=== PATIENT | female | born 1930 | race Caucasian/White ===

== ENCOUNTER 2017-09-19 12:02 | Inpatient (IN) | payer OTHER ==
[~2017-09-19] VITALS: Ht 157.5 cm; Wt 61.7 kg
[~2017-09-19 12:02] MED LIST: ASPIRIN325 PO; CARDIZEM CD180 MG PO; CELEXA10 MG PO; CHERATUSSIN AC118 ML PO; DUONEB 2.5-0.5 M3 ML INH; FOSAMAX 70 MG T70 MG PO; HUMALOG100 UNIT/1; HUMALOG100 UNIT/1 SUBQ; HYDROCODONE-AP1 EAC6 PO; LANTUS100 UNIT/M SUBQ; LEVAQUIN 500 M500 M2 PO; LEVEMIR SUBQ; LEVEMIR100 UNIT/1 SUBQ; LEVOTHYROXINE0.05 MG PO; LIPITOR10 MG PO; MIRALAX17 GM PO; MIRALAX255 GM PO; NOVOLOG100 UNIT/1 SUBQ; OYST-CAL-500500 MG PO; ZOCOR 10 MG TAB10 MG PO
[2017-09-19 12:06] VITALS: BP 130/59
[2017-09-19] MEDS ORDERED: BREO ELLIPTA 11 EACH INH (12:21)
[2017-09-19] MEDS ORDERED: DIGOXIN125 MCG PO (12:22)
[2017-09-19] MEDS ORDERED: POTASSIUM20 PO (12:22)
[2017-09-19] MEDS ORDERED: LASIX 40 MG TAB40 M2 PO (12:22)
[2017-09-19] MEDS ORDERED: ELIQUIS5 MG PO (12:23)
[2017-09-19] MEDS ORDERED: DOC-Q-LACE100 MG PO (12:23)
[2017-09-19] MEDS ORDERED: ACETAMINOPHEN-1 EAC1 PO (12:24)
[2017-09-19] MEDS ORDERED: MUCINEX100 MG PO (12:24)
[2017-09-19] MEDS ORDERED: TYLENOL325 MG PO (12:24)
[2017-09-19 12:39] LABS: ABSOLUTE LYMPHOCYTES 0.8 thou/uL (0.8-5.3); ABSOLUTE MONOCYTES 1.1 thou/uL (0.0-1.2); ABSOLUTE NEUTROPHILS 4.5 thou/uL (1.6-8.1); BASOPHILS 0.4 %; EOSINOPHILS 0.3 %; HEMATOCRIT 45.8 % (37.0-47.0); HEMOGLOBIN 15.3 gm/dL (12.0-15.0); LYMPHOCYTES 12.1 %; MCHC 33.4 g/dL (28.0-37.0); MCV 89.7 fL (80.0-100.0); MONOCYTES 16.9 %; MPV 10.7 fl. (7.2-11.1); NUCLEATED RBCS 0 /100WBC; PLATELET COUNT* 165 thou/uL (150-400); POLYS 70.3 %; RBC 5.11 mil/uL (4.20-5.00); RDW-CV 14.2 % (10.5-14.5); WBC 6.4 thou/uL (4.0-11.0)
[2017-09-19 12:44] LABS: INFLUENZA A ANTIGEN None Detected (None Detect)
[2017-09-19 12:48] LABS: ANION GAP 5 mmol/L (7-16); BUN 17 mg/dL (7-18); CALCIUM 8.5 mg/dL (8.5-10.1); CHLORIDE 95 mmol/L (98-107); CO2 36 mmol/L (21-32); CREATININE 1.2 mg/dL (0.6-1.3); GLUCOSE 134 mg/dL (70-99); POTASSIUM 3.9 mmol/L (3.5-5.1); SODIUM 136 mmol/L (136-145)
[2017-09-19 12:51] LABS: PROTIME 10.2 Seconds (9.20-11.50)
[2017-09-19 12:59] LABS: ALBUMIN 3.4 g/dL (3.4-5.0); ALKALINE PHOSPHATASE 78 U/L (46-116); LIPASE 69 U/L (73-393); MAGNESIUM 1.8 mg/dL (1.8-2.4); NT-PRO BRAIN NAT PEPTIDE 1480 pg/mL (<300); SGOT 47 U/L (15-37); SGPT 26 U/L (30-65); TOTAL BILIRUBIN 0.4 mg/dL (<0.1-1.0); TOTAL PROTEIN 6.6 g/dL (6.4-8.2); TROPONIN-I LEVEL <0.06 ng/mL (<0.06)
--- NOTE | 2017-09-19 14:50 | EKG ---
[place] [address] ELECTROCARDIOGRAM REPORT Name: LUIS MANUEL [place] Room: [place] [address] ADM IN [facility].#: [id number] Admission: 09/19/17 Attend Phys: Bill Sherman Discharge: Date of : [birth year] Report #: [id number] THIS REPORT FOR: //name// [facility] ED Test Date: 2017-09-19 Test Time: 12:22:42 Pat Name: LUIS MANUEL [place] Department: Room: [facility] Gender: F Pediatric Dermatologist: Kristi WEAVER : 1930 Requested By: Darion Richard Order Number: [id number] MD: David Curiel Measurements Intervals [place] Rate: 91 P: [place]: QRS: 50 QRSD: 124 T: -70 QT: 389 QTc: 479 Interpretive Statements Atrial fibrillation Right bundle branch block Compared to ECG 03/06/2015 08:40:16 Bifascicular block no longer present Electronically Signed On 09-19-2017 14:49:47 CDT by David Curiel [email or web address] <ELECTRONICALLY SIGNED> By: David Curiel MD, [facility] 09/19/17 1449 1222 1222 David Curiel MD, [facility] /EPI
[2017-09-19 17:21] VITALS: BP 108/48
[2017-09-19 17:34] LABS: CALCIUM 8.1 mg/dL (8.5-10.1); CREATININE 1.1 mg/dL (0.6-1.3); POTASSIUM 4.3 mmol/L (3.5-5.1)
[2017-09-19 18:17] VITALS: BP 106/55
--- NOTE | 2017-09-19 19:25 | NUR ---
PATIENT ADM TO UNIT, ON FLOOR AT 1755. REPORT FROM [facility] IN ER, AGREE WITH REPORT, ASSESSMENT AND DOCUMENTATION COMPLETED. PATIENT A&OX4, LETHARGIC AT THIS TIME. ABBLE TO ANSWER QUESTIONS APPROPRIATELY, BUT FALLS RIGHT BACK TO SLEEP. DAUGHTER WAS AT BEDSIDE FOR ADM ASSESSMENT, HYSTORY INFORMATION PROVIDED BY DAUGHTER. ALL BELONGINGS WITHIN REACH, CALL LIGHT AT BEDSIDE. PT REPORTS ABLE TO AMBULATE WITH WALKER, STEADY GAIT. PATIENT HAS NOT AMBULATED SINCE ON THE FLOOR. NO OTHER COMPLAINTS AT THIS TIME. APPROPRAITE AND COOPORATIVE WITH CARE.
[2017-09-19 21:00] VITALS: BP 114/63
[2017-09-19 22:08] VITALS: BP 105/54
[2017-09-19 22:22] VITALS: BP 77/41
[2017-09-20 05:00] VITALS: BP 109/50
[2017-09-20 05:11] LABS: ABSOLUTE LYMPHOCYTES 0.5 thou/uL (0.8-5.3); ABSOLUTE MONOCYTES 0.2 thou/uL (0.0-1.2); ABSOLUTE NEUTROPHILS 2.5 thou/uL (1.6-8.1); BASOPHILS 0.6 %; HEMATOCRIT 40.7 % (37.0-47.0); HEMOGLOBIN 13.6 gm/dL (12.0-15.0); LYMPHOCYTES 14.7 %; MCH 29.9 pg (26.0-34.0); MCHC 33.4 g/dL (28.0-37.0); MCV 89.4 fL (80.0-100.0); MONOCYTES 7.6 %; MPV 10.5 fl. (7.2-11.1); NUCLEATED RBCS 0 /100WBC; PLATELET COUNT* 124 thou/uL (150-400); POLYS 77.1 %; RBC 4.55 mil/uL (4.20-5.00); RDW-CV 14.1 % (10.5-14.5); WBC 3.2 thou/uL (4.0-11.0)
[2017-09-20 05:18] LABS: ALBUMIN 2.5 g/dL (3.4-5.0); CALCIUM 8.1 mg/dL (8.5-10.1); CREATININE 1.1 mg/dL (0.6-1.3); POTASSIUM 4.9 mmol/L (3.5-5.1); TOTAL BILIRUBIN 0.3 mg/dL (<0.1-1.0); TOTAL PROTEIN 4.9 g/dL (6.4-8.2)
[2017-09-20 09:30] VITALS: BP 109/53
--- NOTE | 2017-09-20 14:16 | NUR ---
CM SPOKE TO THE PATIENT TO DISCUSS HOME SITUATION, DISCHARGE PLANNING, AND TO INFORM OF THE ROLE OF CM. PATIENT RESTING WITH EYES CLOSED DURING ASSESSMENT. PATIENT'S DTR INGRID AT THE BEDSIDE ANSWERING QUESTIONS FOR THE PATIENT. PATIENT RESIDES AT THE [facility]. PATIENT NORMALLY ALERT AND ORIENTED. PATIENT USES A WALKER FOR MOBILITY. PATIENT'S DTR STATES THAT THE PLAN IS FOR THE PATIENT TO RETURN TO [facility] AT D/C. CM WILL REMAIN AVAILABLE TO ASSIST AND FOLLOW NEEDED.
[2017-09-20 16:53] VITALS: BP 92/45
--- NOTE | 2017-09-20 17:31 | NUR ---
PATIENT RESTING IN BED. PATIENT DENIES ANY PAIN. PATIENT HAS BEEN AFEBRILE. PATIENT HAS FAIR APPETITE. PATIENT IS UP STANDBY ASSIST TO COMMODE. PATIENT HAS SLEPT ON AND OFF THROUGHOUT DAY. PATIENT DENIES ANY NEEDS AT THIS TIME. CALL LIGHT WITHIN REACH. WILL CONTINUE TO MONITOR.
[2017-09-20 20:30] VITALS: BP 93/41
[2017-09-21 05:08] LABS: ABSOLUTE LYMPHOCYTES 1.2 thou/uL (0.8-5.3); ABSOLUTE MONOCYTES 0.8 thou/uL (0.0-1.2); ABSOLUTE NEUTROPHILS 5.8 thou/uL (1.6-8.1); BASOPHILS 0.2 %; EOSINOPHILS 0.1 %; HEMATOCRIT 38.9 % (37.0-47.0); LYMPHOCYTES 15.4 %; MCH 29.8 pg (26.0-34.0); MCHC 33.3 g/dL (28.0-37.0); MCV 89.4 fL (80.0-100.0); MONOCYTES 9.9 %; MPV 10.2 fl. (7.2-11.1); NUCLEATED RBCS 0 /100WBC; PLATELET COUNT* 131 thou/uL (150-400); POLYS 74.4 %; RBC 4.36 mil/uL (4.20-5.00); RDW-CV 14.4 % (10.5-14.5); WBC 7.7 thou/uL (4.0-11.0)
[2017-09-21 05:45] LABS: ALBUMIN 2.3 g/dL (3.4-5.0); CALCIUM 7.7 mg/dL (8.5-10.1); POTASSIUM 4.1 mmol/L (3.5-5.1); TOTAL BILIRUBIN 0.3 mg/dL (<0.1-1.0); TOTAL PROTEIN 4.8 g/dL (6.4-8.2)
--- NOTE | 2017-09-21 07:33 | NUR ---
PT SLEPT MOST OF SHIFT. ASSESSMENT DOCUMENTED. MEDS GIVEN PER E-MAR. IV PATENT, FLUIDS INFUSING. NO REPORTS OF PAIN. NO CONCERNS AT THIS TIME, WILL CONTINUE WITH PLAN OF CARE.
[2017-09-21 08:05] VITALS: BP 99/46
[2017-09-21 16:40] VITALS: BP 100/48
--- NOTE | 2017-09-21 17:36 | NUR ---
PATIENT RESTING IN BED. PATIENT HAS BEEN UP TO CHAIR X 2 TODAY. PAITIENT IS UP WITH MINIMAL ASSIST AND WORKED WITH THERAPY THIS AFTERNOON. PATIENT IS TOLERATING DIET. PATIENT IS AFEBRILE. PATIENT HAS 02 ON AT 2L/NC. PATIENT DENIES ANY NEEDS AT THIS TIME. CALL LIGHT WITHIN REACH. REMIGIO CONTINUE TO MONITOR.
[2017-09-21 21:00] VITALS: BP 114/51
[2017-09-22] VITALS: BP 124/64
[2017-09-22 04:34] LABS: ABSOLUTE LYMPHOCYTES 1.2 thou/uL (0.8-5.3); ABSOLUTE MONOCYTES 0.8 thou/uL (0.0-1.2); ABSOLUTE NEUTROPHILS 5.1 thou/uL (1.6-8.1); BASOPHILS 0.2 %; EOSINOPHILS 0.1 %; HEMOGLOBIN 13.4 gm/dL (12.0-15.0); LYMPHOCYTES 16.8 %; MCH 30.1 pg (26.0-34.0); MCHC 33.5 g/dL (28.0-37.0); MCV 89.8 fL (80.0-100.0); MONOCYTES 11.4 %; MPV 10.8 fl. (7.2-11.1); NUCLEATED RBCS 0 /100WBC; PLATELET COUNT* 124 thou/uL (150-400); POLYS 71.5 %; RBC 4.45 mil/uL (4.20-5.00); RDW-CV 14.3 % (10.5-14.5); WBC 7.2 thou/uL (4.0-11.0)
[2017-09-22 04:46] LABS: ALBUMIN 2.5 g/dL (3.4-5.0); CALCIUM 8.1 mg/dL (8.5-10.1); CREATININE 0.9 mg/dL (0.6-1.3); POTASSIUM 3.6 mmol/L (3.5-5.1); TOTAL BILIRUBIN 0.4 mg/dL (<0.1-1.0); TOTAL PROTEIN 4.9 g/dL (6.4-8.2)
--- NOTE | 2017-09-22 05:17 | NUR ---
PT SLEPT MOST OF SHIFT. ASSESSMENT DOCUMENTED. MEDS GIVEN PER E-MAR. IV PATENT. NO REPORTS OF PAIN OR NAUSEA. PT BECAME WHEEZEY AND SHORT OF BREATH, DR NOTIFIED, IV FLUIDS HELD PER DR ORDER. PTS HEART RATE JUMPING FROM 115-135 AT BEGINING OF SHIFT. NOTIFIED, DAY TIME CARDIZEM GIVEN PER DR ORDER, PT PLACED ON TELE MONITOR. WILL CONTINUE WITH PLAN OF CARE.
[2017-09-22 05:20] VITALS: BP 116/63
[2017-09-22 08:00] VITALS: BP 113/75
[2017-09-22 14:22] VITALS: BP 113/75
--- NOTE | 2017-09-22 14:23 | NUR ---
Following for d/c planning needs. Spoke with pt's daughter and she is agreeable to home health. Daughter was given choices, and she wants to use [facility]. Faxed referral to [email or web address]. Will fax orders when available. [facility] [phone]; fax [phone]
[2017-09-22 16:09] VITALS: BP 95/35
--- NOTE | 2017-09-22 20:08 | NUR ---
PATIENT RESTING IN BED. PATIENT HAS BEEN UP TO CHAIR FOR ALL MEALS. PATIENT IS UP WAS MINIMAL ASSIST. PATIENT DENIES ANY PAIN. PATIENT LUNG SOUNDS HAVE IMPROVED FROM THIS AM. PATIENT HAS GOOD APPETITE. PATIENT DENIES ANY NEEDS AT THIS TIME. CALL LIGHT WITHIN REACH. WILL CONTINUE TO MONITOR.
[2017-09-23 00:16] VITALS: BP 117/61
[2017-09-23 04:00] VITALS: BP 115/57
[2017-09-23 06:03] LABS: ABSOLUTE LYMPHOCYTES 1.4 thou/uL (0.8-5.3); ABSOLUTE MONOCYTES 0.8 thou/uL (0.0-1.2); ABSOLUTE NEUTROPHILS 4.8 thou/uL (1.6-8.1); BASOPHILS 0.2 %; EOSINOPHILS 0.2 %; HEMATOCRIT 38.6 % (37.0-47.0); HEMOGLOBIN 12.9 gm/dL (12.0-15.0); LYMPHOCYTES 20.3 %; MCH 29.9 pg (26.0-34.0); MCHC 33.5 g/dL (28.0-37.0); MCV 89.1 fL (80.0-100.0); MONOCYTES 10.8 %; MPV 10.4 fl. (7.2-11.1); NUCLEATED RBCS 0 /100WBC; PLATELET COUNT* 125 thou/uL (150-400); POLYS 68.5 %; RBC 4.33 mil/uL (4.20-5.00); RDW-CV 14.6 % (10.5-14.5)
[2017-09-23 06:10] LABS: ALBUMIN 2.7 g/dL (3.4-5.0); CALCIUM 8.8 mg/dL (8.5-10.1); CREATININE 0.9 mg/dL (0.6-1.3); POTASSIUM 3.5 mmol/L (3.5-5.1); TOTAL BILIRUBIN 0.6 mg/dL (<0.1-1.0); TOTAL PROTEIN 5.2 g/dL (6.4-8.2)
--- NOTE | 2017-09-23 06:54 | NUR ---
PATIENT SLEPT WELL DURING THIS SHIFT. PT ALERT/ORIENTED, ABLE TO MAKE NEEDS KNOWN. PT USES CALL LIGHT APPROPRIATELY FOR ASSISTANCE TO BSC. PT VOIDS CLEAR YELLOW URINE. PT WITH SALINE LOCK IN LT AC. PT WITH 2100 BLOOD SUGAR OF 307; HUMALOG 9 UNITS GIVEN. PT DENIES PAIN ON THIS SHIFT. PT ON O2 @ 2 LITERS PER NASAL CANNULA. PT IN DROPLET ISOLATION. FREQUENTLY USED ITEMS AND CALL LIGHT WITHIN REACH. SIDERAILS UPX4 AND BED ALARM ON. WILL CONTINUE TO MONITOR.
[2017-09-23 09:50] VITALS: BP 115/54
[2017-09-23] MEDS ORDERED: TAMIFLU30 MG PO (11:13)
[2017-09-23] MEDS ORDERED: PREDNISONE 10 M10 MG PO (11:15)
[2017-09-23] MEDS ORDERED: LEVAQUIN 250 M250 MG PO (11:16)
[2017-09-23 11:41] VITALS: BP 115/54
--- NOTE | 2017-09-23 14:00 | NUR ---
PT.TO DISCHARGE TODAY BACK TO [facility]. NOTIFIED [facility]. PT.TO HAVE HOMEHEALTH WITH [facility]. FAXED ORDERS TO THEM AND NOTIFIED THEM AT NUMBERS LISTED IN LAST CM NOTE.
--- NOTE | 2017-09-23 15:51 | NUR ---
PATIENT DISCHARGED TO [facility]. DISCHARGE PAPERS REVIEWED AND SIGNED. PRESCRIPTIONS GIVEN. IV REMOVED. COPY OF CHART GIVEN TO DAUGHTER FOR ADMINISTRATION. PATIENT DENIES ANY FURTHER NEEDS. PATIENT TAKEN BY WHEELCHAIR TO EXIT. LEFT WITH DAUGHTER.
--- NOTE | 2018-02-06 11:18 | NUR ---
Received telephone call from intake at [facility]. She said they had not received discharge summary for pt from September visit. Faxed discharge summary to . No other needs identified.
== END 2017-09-23 14:25 | disposition home health service (06) | DRG 191 ==
LOC: M.ERS 12:02 → M.TBA-ER 12:51 → M.3W 12:51
PROVIDERS: Family Medicine; ADMIT Internal Medicine
DX: J44.1 Chronic obstructive pulmonary disease with (acute) exacerbation (principal); J80 Acute respiratory distress syndrome; J96.10 Chronic respiratory failure, unspecified whether with hypoxia or hypercapnia; R65.10 Systemic inflammatory response syndrome (SIRS) of non-infectious origin without acute organ dysfunction; I50.32 Chronic diastolic (congestive) heart failure; E11.9 Type 2 diabetes mellitus without complications; F32.9 Major depressive disorder, single episode, unspecified; I10 Essential (primary) hypertension; E03.9 Hypothyroidism, unspecified; E78.5 Hyperlipidemia, unspecified; M81.0 Age-related osteoporosis without current pathological fracture; J40 Bronchitis, not specified as acute or chronic; I48.91 Unspecified atrial fibrillation; J11.1 Influenza due to unidentified influenza virus with other respiratory manifestations; Z87.891 Personal history of nicotine dependence